=== PATIENT | male | born 1960 | race Caucasian/White ===

== ENCOUNTER 2017-09-22 13:10 | Inpatient (IN) | payer OTHER ==
[~2017-09-22] VITALS: Ht 175.3 cm; Wt 120.0 kg
[2017-09-22 13:54] LABS: HEMATOCRIT 47.4 % (38.0-50.0); HEMOGLOBIN 15.8 G/DL (12.5-16.6); MCHC 33.3 G/DL (30.0-36.0); MCV 90.1 FL (86-99); PLATELET COUNT 251 K/uL (156-360); RBC DIS.WIDTH-CV 12.7 % (11.8-14.6); RED BLOOD COUNT 5.26 M/uL (4.00-5.50)
[2017-09-22 14:02] LABS: CHLORIDE 105 mEq/L (99-109); POTASSIUM 4.8 mEq/L (3.7-5.4); SODIUM 138 mEq/L (136-147)
[2017-09-22 14:04] LABS: GLUCOSE 102 mg/dL (70-99)
[2017-09-22 14:08] LABS: CREATININE 1.2 mg/dL (0.6-1.3); GFR ESTIMATE (CALCULATED) > 59 mL/min/ (58.99-99999)
[2017-09-22 14:09] LABS: UREA NITROGEN (BUN) 16 mg/dL (9-23)
[2017-09-22 14:10] LABS: CREATINE KINASE 107 IU/L (1-294); TOTAL CK 107 IU/L (1-294)
[2017-09-22 14:15] LABS: TROP-I INTERPRETATION NEGATIVE; TROPONIN-I < 0.01 ng/mL (0.0-0.30)
[2017-09-22 14:23] LABS: CKMB RELATIVE INDEX 0.9 (0.0-3.9)
[2017-09-22] MEDS ORDERED: TYLENOL COLD &1 EACH PO (14:48)
[2017-09-22] MEDS ORDERED: ADVIL200 MG PO (14:48)
[2017-09-22] MEDS ORDERED: AMOXICILLIN500 MG PO (14:49)
[2017-09-22 16:52] LABS: ALBUMIN 4.3 g/dL (3.2-4.8)
[2017-09-22 16:55] LABS: TOTAL PROTEIN 7.6 g/dL (6.4-8.3)
[2017-09-22 16:57] LABS: TOTAL BILIRUBIN 0.4 mg/dL (0.0-1.0)
[2017-09-22 16:58] LABS: ALKALINE PHOSPHATASE 105 IU/L (3-129)
[2017-09-22 17:00] LABS: AST (GOT) 50 IU/L (2-34); DIRECT BILIRUBIN 0.2 mg/dL (0.0-0.3)
[2017-09-22 17:01] LABS: ALT (GPT) 64 IU/L (3-49)
[2017-09-22 17:38] LABS: HDL CHOLESTEROL 52 MG/DL (Desirable>=40); LDL CHOLESTEROL 91 mg/dL (Desirable<100); NON-HDL CHOLESTEROL 117 mg/dL (Desirable<160); TOTAL CHOLESTEROL 169 mg/dL (Desirable<200); TRIGLYCERIDES 132 MG/DL (Normal: <150)
[2017-09-22 19:32] VITALS: BP 134/80
[2017-09-22 21:05] LABS: TROP-I INTERPRETATION NEGATIVE; TROPONIN-I < 0.01 ng/mL (0.0-0.30)
[2017-09-22 23:21] VITALS: BP 126/75
[2017-09-23 03:44] LABS: TROP-I INTERPRETATION NEGATIVE; TROPONIN-I < 0.01 ng/mL (0.0-0.30)
[2017-09-23 03:46] VITALS: BP 113/74
[2017-09-23 05:41] LABS: HEMATOCRIT 39.5 % (38.0-50.0); MCH 30.1 PG (29.0-34.0); MCHC 32.9 G/DL (30.0-36.0); MCV 91.4 FL (86-99); PLATELET COUNT 206 K/uL (156-360); RBC DIS.WIDTH-CV 12.9 % (11.8-14.6); RBC DIS.WIDTH-SD 43.7 % (39-53); RED BLOOD COUNT 4.32 M/uL (4.00-5.50); WHITE BLOOD COUNT 3.6 K/uL (4.1-10.2)
[2017-09-23 05:53] LABS: CHLORIDE 107 MEQ/L (99-109); GFR ESTIMATE (CALCULATED) > 59 mL/min/ (58.99-99999); GLUCOSE 122 mg/dL (70-99); SODIUM 139 MEQ/L (136-147); UREA NITROGEN (BUN) 11 mg/dL (9-23)
[2017-09-23 07:18] VITALS: BP 132/80
[2017-09-23 09:33] LABS: HEMOGLOBIN A1c (GLYCOHEMOGLOB) 5.6 % (Below 5.7)
[2017-09-23 11:43] VITALS: BP 131/75
[2017-09-23 16:17] VITALS: BP 111/74
[2017-09-23 21:00] VITALS: BP 128/74
[2017-09-23 23:24] VITALS: BP 119/65
[2017-09-24 03:16] VITALS: BP 121/76
[2017-09-24 04:58] LABS: BASOPHIL (%) 0.3 % (0-1); EOSINOPHIL (%) 2.3 % (0-5); EOSINOPHIL COUNT 0.1 K/uL (0-0.3); HEMATOCRIT 42.5 % (38.0-50.0); HEMOGLOBIN 14.2 G/DL (12.5-16.6); IMMATURE GRANULOCYTE (%) 0.3 % (0.0-0.7); LYMPHOCYTE (%) 48.7 % (15-42); LYMPHOCYTE COUNT 1.7 K/uL (1.0-2.8); MCH 30.3 PG (29.0-34.0); MCHC 33.4 G/DL (30.0-36.0); MCV 90.6 FL (86-99); MONOCYTE (%) 16.9 % (3-12); MONOCYTE COUNT 0.6 K/uL (0-0.8); NEUTROPHIL (%) 31.5 % (45-76); NEUTROPHIL COUNT 1.1 K/uL (1.8-6.4); PLATELET COUNT 226 K/uL (156-360); RBC DIS.WIDTH-CV 13.1 % (11.8-14.6); RBC DIS.WIDTH-SD 43.5 % (39-53); RED BLOOD COUNT 4.69 M/uL (4.00-5.50); WHITE BLOOD COUNT 3.6 K/uL (4.1-10.2)
[2017-09-24 05:19] LABS: CHLORIDE 106 mEq/L (99-109); POTASSIUM 4.7 mEq/L (3.7-5.4); SODIUM 142 mEq/L (136-147)
[2017-09-24 05:21] LABS: GLUCOSE 101 mg/dL (70-99)
[2017-09-24 05:25] LABS: GFR ESTIMATE (CALCULATED) > 59 mL/min/ (58.99-99999)
[2017-09-24 05:26] LABS: UREA NITROGEN (BUN) 12 mg/dL (9-23)
[2017-09-24 08:00] VITALS: BP 115/75
[2017-09-24 08:12] LABS: THYROTROPIN (TSH) 1.2 MIU/L (0.4-5.5)
[2017-09-24 12:05] VITALS: BP 121/79
[2017-09-24 16:04] VITALS: BP 114/73
[2017-09-24 19:00] VITALS: BP 136/74
[2017-09-25 00:11] VITALS: BP 115/66
[2017-09-25 04:14] VITALS: BP 120/69
[2017-09-25 08:36] VITALS: BP 147/70
[2017-09-25] MEDS ORDERED: AUGMENTIN875 MG PO (10:14)
[2017-09-25] MEDS ORDERED: VENTOLIN HFA18 GM IH (10:15)
== END 2017-09-25 12:37 | disposition home or self-care (01) | DRG 194 ==
LOC: EME 13:10 → EDOF 15:45 → 4SOUTH 15:45 → EDOF 15:45 → ENRESERV 16:59 → 4SOUTH 18:29 → ENPENDDIS 09-25 → 4SOUTH 09-25 12:37
PROVIDERS: Emergency Medicine; Internal Medicine
DX: J18.9 Pneumonia, unspecified organism (principal); J98.11 Atelectasis; E66.9 Obesity, unspecified; Z86.73 Personal history of transient ischemic attack (TIA), and cerebral infarction without residual deficits; E86.0 Dehydration; J98.01 Acute bronchospasm; R09.02 Hypoxemia; Z68.39 Body mass index [BMI] 39.0-39.9, adult; R73.9 Hyperglycemia, unspecified
CPT/HCPCS: 71046; 71275; 80048; 80061; 80076; 82550; 82553; 83036; 83605; 83880; 84443; 84484; 85025; 85027; 85379; 87040; 93005; 94640; 94760; 94799; 99281; 99285; C9113; G0378; J0456; J0696; J1650; J7030